=== PATIENT | male | born 1975 | race Caucasian/White ===

== ENCOUNTER 2017-08-27 17:03 | Emergency (ER) | payer BC, SELFPAY ==
[2017-08-27 17:03] VITALS: BP 116/91; PULSE 59; O2SAT 100
[2017-08-27 17:13] VITALS: BP 116/91; PULSE 61; RESP 16; TEMP 36.6; O2SAT 99; BMI 21.5
[2017-08-27] MEDS: SODIUM CHLORIDE 0.9% 1,000 ML 1000 ML IV (17:28)
[2017-08-27 17:36] LABS: Add Manual Diff / Slide Review NO; Basophils Percent Auto 0.3 % (0-2); Eosinophils Percent Auto 4.5 % (2-4); Hematocrit 43.9 % (41-53); Hemoglobin 15.2 g/dL (13.5-17.5); Lymphocytes Percent Auto 22.1 % (25-40); Mean Corpuscular HGB Conc 34.7 % (30-36); Mean Corpuscular Hemoglobin 30.7 PG (26-34); Mean Corpuscular Volume 88.5 fL (80-100); Monocytes Percent Auto 8.9 % (3-14); Neutrophils Absolute Auto 7000 /uL (3000-5900); Neutrophils Percent Auto 64.2 % (50-75); Platelet Count 200 X10^3/uL (150-400); Red Blood Cell Count 4.96 X10^6/uL (4.5-5.9)
[2017-08-27 17:47] LABS: Lactate (Lactic Acid) 0.7 mmol/L (0.7-2.1)
[2017-08-27 17:48] LABS: Alanine Aminotransferase 31 IU/L (21-72); Albumin 4.4 g/dL (3.5-5.0); Albumin Globulin Ratio 1.3 (1.0-2.8); Alkaline Phosphatase 56 U/L (38-126); Aspartate Aminotransferase 24 IU/L (17-59); BUN Creatinine Ratio 21.3 (6-22); Bilirubin Total 0.9 mg/dL (0.2-1.3); Blood Urea Nitrogen 17 mg/dL (9-20); Calcium 9.4 mg/dL (8.4-10.2); Carbon Dioxide 30 mmol/L (22-32); Chloride 101 mmol/L (98-107); Estimated Glomerular Filt Rate > 60.0 mL/min (>60); Globulin 3.3 g/dL (1.7-4.1); Glucose 94 mg/dL (70-100); HEMOLYSIS < 15 (0-50); Lipase 41 U/L (23-300); Sodium 141 mmol/L (137-145); Total Protein 7.7 g/dL (6.3-8.2)
--- NOTE | 2017-08-27 17:50 | ED_ITS ---
HPI - Abdominal Pain <Catalina Delgado PA-C - Last Filed: 08/27/17 22:04> General Chief Complaint: Abdominal Pain Stated Complaint: SEVERE ABDOMINAL PAIN Time Seen by Provider: 08/27/17 17:49 Source: patient Mode of arrival: ambulatory Limitations: no limitations History of Present Illness HPI narrative: This generally healthy 41-year-old male comes in due to abdominal pain which began last night. He states that he felt normal yesterday , came home last night and had 1 sip of malt liquor and felt onset of pain. He had some nausea briefly and tried to eat pizza and some beef jerky which he could not tolerate, and threw up once last night. He has not eaten today, but has not had recurrent vomiting, just poor appetite. He states that pain has persisted all last night and today. He states that pain tends to come and go, probably about every 10 or 12 min, he will have brief, stabbing pain that resolves after a few seconds or a minute. He states pain is better if he tightness is abdominal muscles. When it occurs, it is worse with any type of movement or walking around. Better when lying down. He states that he did eat some food from a deli that he was not sure about at lunch yesterday prior to sx but seemed okay (meat lasagna). He denies any other known exposures. He denies any recent illness. He states he felt some chills and sweats last night , but no known temperature, none today. He had a normal bowel movement today, no blood in the stools. He has not had any urinary symptoms. He denies any dyspnea, wheeze, chest pain or other complaints on systems review. Related Data Allergies Allergy/AdvReac Type Severity Reaction Status Date / Time Penicillins Allergy Severe Difficulty Verified 08/27/17 17:27 Breathing Review of Systems <Catalina Delgado PA-C - Last Filed: 08/27/17 22:04> Review of Systems All systems reviewed & are unremarkable except as noted in HPI and below Exam <Catalina Delgado PA-C - Last Filed: 08/27/17 22:04> Narrative Exam Narrative: GENERAL APPEARANCE: Patient sitting comfortably, in no distress. HEENT: PERRL, EOMI, no scleral icterus GENERAL: Patient resting comfortably, in no distress HEENT: EOMI, conjunctiva pink, no scleral icterus NECK: Supple LUNGS: Clear to auscultation bilaterally. HEART: Rate and rhythm regular, normal S1 and S2, no S3 or S4. ABDOMEN: Soft, nondistended, bowel sounds present x 4 quadrants, no masses palpable, no hepatosplenomegaly. Moderate periumbilical tenderness without guarding or rebound. Negative psoas and obturator signs. No tenderness in the outer quadrants, no CVAT EXTREMITIES: No edema, no cyanosis DERMATOLOGIC: No jaundice or exanthem NEUROLOGIC: Alert and oriented with normal speech and coordination Initial Vital Signs Initial Vital Signs: Vital Signs Pulse Rate 59 L 08/27/17 17:03 Blood Pressure 116/91 H 08/27/17 17:03 Pulse Oximetry 100 08/27/17 17:03 Temperature 97.9 <Marnie Haque DO - Last Filed: 08/28/17 02:54> Initial Vital Signs Initial Vital Signs: Vital Signs Pulse Rate 59 L 08/27/17 17:03 Blood Pressure 116/91 H 08/27/17 17:03 Pulse Oximetry 100 08/27/17 17:03 Course <Catalina Delgado PA-C - Last Filed: 08/27/17 22:04> Hospital Course: Patient reports some improvement in pain during his stay. He is tolerating fluids, has eaten crackers and apple sauce with no vomiting. He appears comfortable playing video on cell phone. He does not appear to need imaging/ further workup at this point, but he and his significant other agree to return if he has any new symptoms such as fever, recurrent vomiting, worsening pain, etc Orders Ordered: Discontinued Medications Al Hydrox/Mg Hydrox/Simethicone 20 ml/ Lidocaine HCl 15 ml 0 ml PO NOW ONE Stop: 08/27/17 18:03 Last Admin: 08/27/17 18:15 Dose: 15 ml Dicyclomine HCl (Bentyl) 10 mg PO NOW ONE Stop: 08/27/17 18:30 Last Admin: 08/27/17 18:37 Dose: 10 mg Hyoscyamine (Levsin) 0.125 mg PO NOW ONE Stop: 08/27/17 18:03 Last Admin: 08/27/17 18:31 Dose: Sodium Chloride (Normal Saline 0.9%) 1,000 mls @ 1,000 mls/hr IV BOLUS ONE Stop: 08/27/17 18:11 Last Infusion: 08/27/17 18:37 Dose: 0 mls/hr Admin: 08/27/17 17:28 Dose: 1,000 mls/hr Ketorolac Tromethamine (Toradol) 30 mg IV NOW ONE Stop: 08/27/17 18:03 Last Admin: 08/27/17 18:15 Dose: 30 mg Ondansetron HCl (Zofran) 4 mg IV NOW ONE Stop: 08/27/17 18:03 Last Admin: 08/27/17 18:15 Dose: 4 mg Vital Signs - 8 hr 08/27/17 20:00 08/27/17 20:56 Pulse Rate 50 L 50 L Respiratory Rate 16 Blood Pressure [Left Arm] 129/80 H 132/79 H Pulse Oximetry 100 97 <Marnie Haque DO - Last Filed: 08/28/17 02:54> Orders Ordered: Discontinued Medications Al Hydrox/Mg Hydrox/Simethicone 20 ml/ Lidocaine HCl 15 ml 0 ml PO NOW ONE Stop: 08/27/17 18:03 Last Admin: 08/27/17 18:15 Dose: 15 ml Dicyclomine HCl (Bentyl) 10 mg PO NOW ONE Stop: 08/27/17 18:30 Last Admin: 08/27/17 18:37 Dose: 10 mg Hyoscyamine (Levsin) 0.125 mg PO NOW ONE Stop: 08/27/17 18:03 Last Admin: 08/27/17 18:31 Dose: Sodium Chloride (Normal Saline 0.9%) 1,000 mls @ 1,000 mls/hr IV BOLUS ONE Stop: 08/27/17 18:11 Last Infusion: 08/27/17 18:37 Dose: 0 mls/hr Admin: 08/27/17 17:28 Dose: 1,000 mls/hr Ketorolac Tromethamine (Toradol) 30 mg IV NOW ONE Stop: 08/27/17 18:03 Last Admin: 08/27/17 18:15 Dose: 30 mg Ondansetron HCl (Zofran) 4 mg IV NOW ONE Stop: 08/27/17 18:03 Last Admin: 08/27/17 18:15 Dose: 4 mg Vital Signs - 8 hr 08/27/17 20:00 08/27/17 20:56 Pulse Rate 50 L 50 L Respiratory Rate 16 Blood Pressure [Left Arm] 129/80 H 132/79 H Pulse Oximetry 100 97 MDM - Abdominal Pain <Catalina Delgado PA-C - Last Filed: 08/27/17 22:04> Lab Data Result diagrams: 08/27/17 17:15 08/27/17 17:15 Lab Results 08/27/17 08/27/17 08/27/17 Range/Units 17:15 17:15 17:15 WBC 11.0 (4.5-11.0) X10^3/uL RBC 4.96 (4.5-5.9) X10^6/uL Hgb 15.2 (13.5-17.5) g/dL Hct 43.9 (41-53) % MCV 88.5 (80-100) fL MCH 30.7 (26-34) PG MCHC 34.7 (30-36) % RDW 13.0 (11.6-14.8) % Plt Count 200 (150-400) X10^3/uL Neut % (Auto) 64.2 (50-75) % Lymph % (Auto) 22.1 L (25-40) % [place] % (Auto) 8.9 (3-14) % Eos % (Auto) 4.5 H (2-4) % Baso % (Auto) 0.3 (0-2) % Neut # (Auto) 7000 H (3331-1626) /uL Sodium 141 (137-145) mmol/L Potassium 4.0 (3.4-5.1) mmol/L Chloride 101 (98-107) mmol/L Carbon Dioxide 30 (22-32) mmol/L BUN 17 (9-20) mg/dL Creatinine 0.80 (0.66-1.25) mg/dL Estimated GFR > 60.0 (>60) mL/min BUN/Creatinine Ratio 21.3 (6-22) Glucose 94 (70-100) mg/dL Lactate 0.7 (0.7-2.1) mmol/L Calcium 9.4 (8.4-10.2) mg/dL Total Bilirubin 0.9 (0.2-1.3) mg/dL AST 24 (17-59) IU/L ALT 31 (21-72) IU/L Alkaline Phosphatase 56 (38-126) U/L Total Protein 7.7 (6.3-8.2) g/dL Albumin 4.4 (3.5-5.0) g/dL Globulin 3.3 (1.7-4.1) g/dL Albumin/Globulin Ratio 1.3 (1.0-2.8) Lipase 41 (23-300) U/L Urinalysis negative for leukocytes, nitrites, blood. Trace protein, +1 bilirubin <Marnie Haque, DO - Last Filed: 08/28/17 02:54> Lab Data Lab Results 08/27/17 08/27/17 08/27/17 Range/Units 17:15 17:15 17:15 WBC 11.0 (4.5-11.0) X10^3/uL RBC 4.96 (4.5-5.9) X10^6/uL Hgb 15.2 (13.5-17.5) g/dL Hct 43.9 (41-53) % MCV 88.5 (80-100) fL MCH 30.7 (26-34) PG MCHC 34.7 (30-36) % RDW 13.0 (11.6-14.8) % Plt Count 200 (150-400) X10^3/uL Neut % (Auto) 64.2 (50-75) % Lymph % (Auto) 22.1 L (25-40) % [place] % (Auto) 8.9 (3-14) % Eos % (Auto) 4.5 H (2-4) % Baso % (Auto) 0.3 (0-2) % Neut # (Auto) 7000 H (4065-8080) /uL Sodium 141 (137-145) mmol/L Potassium 4.0 (3.4-5.1) mmol/L Chloride 101 (98-107) mmol/L Carbon Dioxide 30 (22-32) mmol/L BUN 17 (9-20) mg/dL Creatinine 0.80 (0.66-1.25) mg/dL Estimated GFR > 60.0 (>60) mL/min BUN/Creatinine Ratio 21.3 (6-22) Glucose 94 (70-100) mg/dL Lactate 0.7 (0.7-2.1) mmol/L Calcium 9.4 (8.4-10.2) mg/dL Total Bilirubin 0.9 (0.2-1.3) mg/dL AST 24 (17-59) IU/L ALT 31 (21-72) IU/L Alkaline Phosphatase 56 (38-126) U/L Total Protein 7.7 (6.3-8.2) g/dL Albumin 4.4 (3.5-5.0) g/dL Globulin 3.3 (1.7-4.1) g/dL Albumin/Globulin Ratio 1.3 (1.0-2.8) Lipase 41 (23-300) U/L Discharge Plan Departure Patient Disposition: Home, Self-Care Clinical Impression: Abdominal pain Discharge Date/Time: 08/27/17 21:03 Interventions: ED Discharge Assessment Last Done: 08/27/17 21:02 Activity Restrictions/Additional Instructions: Return as we discussed if you have any acutely worsening symptoms, or new symptoms such as fever. Drink clear fluids and try small amounts of bland food (i.e BRAT diet, bananas, white toast, white rice, tea, applesauce) every couple of hours as we talked about. If you do okay with this, you can slowly advance to some other starchy foods such as a baked potato without the skin, or protein such as a scrambled egg or skinless baked chicken. Keep some liquid antacid like maalox or gaviscon to use as needed. You can gradually resume your normal diet as you feel better. We like to follow abdominal pain closely so please call your PCP first thing Tuesday morning and let them know you were in the ED and need to be seen for recheck Referrals: Gonzales Macdonald DO [Non-Staff] - <Marnie Haque DO - Last Filed: 08/28/17 02:54> Cosign ED Attending Arnoldoature Attestation: I was immediately available in the department for consultation. Documentation has been reviewed. I agree with assessment and plan.
[2017-08-27] MEDS: MAG HYDROX/ALUMINUM/SIMETH SUS 20 ML, LIDOCAINE VISCOUS 2% 15 ML PO (18:15)
[2017-08-27] MEDS: ONDANSETRON 4 MG/2 ML INJ IV (18:15)
[2017-08-27] MEDS: KETOROLAC 60 MG/2 ML VIAL 30 MG IV (18:15)
[2017-08-27] MEDS: DICYCLOMINE 10 MG CAPSULE PO (18:37)
[2017-08-27 18:40] VITALS: BP 133/82; PULSE 70; RESP 12; O2SAT 99
[2017-08-27 20:00] VITALS: BP 129/80; PULSE 50; O2SAT 100
[2017-08-27 20:56] VITALS: BP 132/79; PULSE 50; RESP 16; O2SAT 97
== END 2017-08-27 21:03 | disposition home or self-care (01) ==
PROVIDERS: Emergency Medicine; Emergency Provider Internal Medicine
DX: R10.9 Unspecified abdominal pain (principal)
CPT/HCPCS: 36591; 80053; 81003; 83605; 83690; 85025; 96361; 96374; 96375; 99283; 99284; J1885; J2405